=== PATIENT | male | born 1950 | race Caucasian/White ===

== ENCOUNTER 2022-05-03 05:32 | Outpatient (CLI) | payer MEDICARE ==
[~2022-05-03] VITALS: Ht 175.3 cm; Wt 126.1 kg
[2022-05-03] MEDS ORDERED: DOXA1TAB2 PO (14:40)
[2022-05-03] MEDS ORDERED: LOVA20TA2 PO (14:40)
[2022-05-03] MEDS ORDERED: FLUT1DIS26 IH (14:40)
[2022-05-03] MEDS ORDERED: QUIN40TA34 PO (14:40)
[2022-05-03] MEDS ORDERED: ALBU1.25 INH (14:40)
== END 2022-05-03 14:43 | disposition home or self-care (01) ==
LOC: PREOP 05:32
PROVIDERS: ATTEND Surgery
DX: Z01.818 Encounter for other preprocedural examination (principal)

== ENCOUNTER 2022-05-16 07:35 | Day surgery (SDC) | payer MEDICARE ==
[~2022-05-16] VITALS: Ht 175.3 cm; Wt 126.1 kg
[~2022-05-16 07:35] MED LIST: ALBU1.25 INH; DOXA1TAB2 PO; FLUT1DIS26 IH; LOVA20TA2 PO; QUIN40TA34 PO
[2022-05-16] MEDS ORDERED: LACTATED RINGERS 1,000 ML IV STA (07:48)
[2022-05-16 07:55] VITALS: BP 142/83
[2022-05-16] MEDS ORDERED: HURRICAINE EXT TUBE (BENZOCAINE) XX PRN (08:00)
[2022-05-16] MEDS ORDERED: LACTATED RINGERS 1,000 ML IV ONE (08:21)
[2022-05-16] MEDS ORDERED: HURRICAINE EXT TUBE (BENZOCAINE) ONE (08:32)
[2022-05-16] MEDS ORDERED: PROPOFOL INJECTION 50 ML IV ONE (08:49)
[2022-05-16] MEDS ORDERED: proPOfol 200 MG/20 ML (DIPRIVAN) VIAL IV ONE (09:18)
[2022-05-16 09:35] VITALS: BP 105/62
--- NOTE | 2022-05-16 09:39 | Discharge Inst-Simple/Standard ---
Discharge Inst-Standard Patient Instructions/Follow Up Plan of Care/Instructions/FU: Follow up in [address] Padgett Activity as Tolerated: Yes Discharge Diet: No Restrictions, Regular Diet, Other Diet (high fiber) FRIEDA PADGETT DO May 16, 2022 09:39
[2022-05-16 09:40] VITALS: BP 115/68
[2022-05-16 09:45] VITALS: BP 128/84
[2022-05-16 10:00] VITALS: BP 129/68
--- NOTE | 2022-05-16 11:32 | Anesthesia-General Post-Op ---
MAC Patient Condition Mental Status/LOC: Same as Preop Cardiovascular: Satisfactory Nausea/Vomiting: Absent Respiratory: Satisfactory Pain: Controlled Complications: Absent Post Op Complications Complications None Follow Up Care/Instructions Patient Instructions None needed. Anesthesiology Discharge Order Discharge Order Patient is doing well, no complaints, stable vital signs, no apparent adverse anesthesia problems. No complications reported per nursing. STEVEN MARTINEZ CRNA May 16, 2022 11:32
--- NOTE | 2022-05-16 13:54 | OPERATIVE REPORT ---
DATE OF SERVICE: 05/16/2022 PREOPERATIVE DIAGNOSES: Positive Cologuard and gastroesophageal reflux disease. POSTOPERATIVE DIAGNOSES: Gastric polyps, small hiatal hernia and early Schatzki's ring, colon polyps, diverticulosis, internal hemorrhoids. PROCEDURES: EGD with biopsies, colonoscopy with hot biopsy polypectomy x3. SURGEON: Frieda Padgett DO ANESTHESIA: Per STOCK MIXER. ESTIMATED BLOOD LOSS: None. COMPLICATIONS: None. INDICATIONS: The patient is a 72-year-old male who had a positive Cologuard and also GERD symptoms. He understands risks and benefits of the procedure and wishes to proceed. Consent was signed in chart. DESCRIPTION OF PROCEDURE: The patient was taken to the endoscopy suite, placed in left lateral recumbent position. Timeout was performed. Scope was inserted in the mouth, down the esophagus, stomach and into the duodenum without difficulty. There were no polyps, masses, ulcerations within the duodenum. Scope was slowly retracted back into the stomach, where it was further insufflated. Biopsy of the antrum was obtained. No masses or ulcerations. A few benign appearing polyps throughout the stomach present. Biopsy one was obtained. The scope was retroflexed, showing a small hiatal hernia. No other pathology. Scope was returned to its normal position slowly withdrawn to the distal esophagus, may be an early Schatzki's ring present. Biopsy of the GE junction was obtained. Scope was then slowly retracted back noting no polyps, masses or ulcerations. Digital rectal exam was performed. No palpable polyps, masses or ulcerations. Scope was inserted in the rectum and advanced all the way to the cecum with minimal difficulty. Prep was adequate with irrigation and suction. The scope was then slowly retracted back. No polyps, masses or ulcerations within the cecum. Ascending colon had a small polyp, which hot biopsy and polypectomy was performed. Scope was then easily retracted in transverse colon where another small polyp was present, which hot biopsy polypectomy was performed. Scope was introduced slowly retracted back. No polyps, masses or ulcerations in the remainder of the transverse, descending and sigmoid colon. Throughout the colon, diverticula were present. Once in the rectum, another polyp was present, which hot biopsy polypectomy was performed. Scope was retroflexed noting some internal hemorrhoids. Scope was returned to its normal position and slowly withdrawn to completely remove. The patient tolerated the procedure well without complications, taken to recovery in stable condition. RECOMMENDATIONS: The patient will continue on current medications. We will await results and maybe make some changes. Await pathology from the colonoscopy biopsies. We will likely need a repeat colonoscopy in 5 years. Any issues before that be seen at the time. Job ID: [id number] DocumentID: [id number] Dictated Date: 05/16/2022 09:39:24 Aviation Consultant Date: 05/16/2022 13:53:00 Dictated By: FRIEDA PADGETT DO
== END 2022-05-16 10:13 | disposition home or self-care (01) ==
LOC: ENDO 07:35
PROVIDERS: ATTEND Surgery
DX: D12.2 Benign neoplasm of ascending colon (principal); K63.5 Polyp of colon; K62.1 Rectal polyp; K57.30 Diverticulosis of large intestine without perforation or abscess without bleeding; K64.8 Other hemorrhoids; K31.7 Polyp of stomach and duodenum; K44.9 Diaphragmatic hernia without obstruction or gangrene; K21.00 Gastro-esophageal reflux disease with esophagitis, without bleeding; K29.70 Gastritis, unspecified, without bleeding; K22.2 Esophageal obstruction; Z79.899 Other long term (current) drug therapy; F17.210 Nicotine dependence, cigarettes, uncomplicated; E66.9 Obesity, unspecified; Z68.41 Body mass index [BMI] 40.0-44.9, adult
CPT/HCPCS: 88305